=== PATIENT | female | born 1960 | race Caucasian/White ===

== ENCOUNTER 2017-09-07 11:32 | Inpatient (IN) | payer BC ==
[~2017-09-07] VITALS: Ht 160 cm; Wt 75.9 kg
[~2017-09-07 11:32] MED LIST: CARV3.1240 PO; CLOP75TA41 PO; DIAZ5TAB3 PO; ISOS30TA4 PO; LORA-654 PO; LOSA25TA9 PO; TRAZ50TA2 PO
[2017-09-07] MEDS ORDERED: SODIUM CHLORIDE 0.9% 1,000 ML IV SCH (16:37)
[2017-09-07] MEDS ORDERED: ACETAMINOPHEN 500 MG TAB PO PRN (16:45)
[2017-09-07] MEDS ORDERED: LORazepam 0.5 MG TAB PO PRN (16:45)
[2017-09-07] MEDS ORDERED: NITROGLYCERIN 0.4 MG SL TAB SL PRN (16:45)
[2017-09-07] MEDS ORDERED: TEMAZEPAM 15 MG CAP PO PRN (16:45)
[2017-09-07] MEDS ORDERED: MORPHINE SULF INJ 2 MG/ML SYRINGE 1ML IV PRN ×2 (16:45)
[2017-09-07] MEDS ORDERED: PROMETHAZINE HCL 25 MG/ML 1ML IV PRN (16:45)
[2017-09-07] MEDS ORDERED: LACTULOSE 20Gm/30ML SOLN PO PRN (16:45)
[2017-09-07] MEDS ORDERED: ENOXAPARIN SOD 40 MG/0.4 ML SYRINGE SC SCH (16:51)
[2017-09-07] MEDS ORDERED: PANTOPRAZOLE 40 MG/10 ML VIAL IV ONE (17:00)
[2017-09-07 17:01] LABS: Basophils # (auto) 0 uL; Basophils % (auto) 0.5 % (0.0-2.0); Eosinophils # (auto) 0.2 uL; Eosinophils % (auto) 1.6 % (0.0-7.0); Hematocrit 36.2 % (36.0-46.0); Hemoglobin 12.1 g/dL (12.2-16.2); Lymphocytes # (auto) 2.9 uL; Lymphocytes % (auto) 31.7 % (10.0-50.0); Mean Corpuscular Hgb Conc. 33.4 g/dL (32.0-36.0); Mean Corpuscular Volume 89.6 fL (80.0-100.0); Monocytes # (auto) 0.5 uL; Monocytes % (auto) 5.8 % (0.0-12.0); Neutrophils # (auto) 5.6 uL; Neutrophils % (auto) 60.4 % (37.0-80.0); Nucleated Red Blood Cells % 0.1 %; Platelet Count (auto) 201 10^3/uL (140-450); Red Blood Cells 4.04 10^6/uL (4.0-5.20); Red Cell Distribution Width 14.1 % (11.8-14.3); White Blood Cell 9.2 10^3/uL (4.4-10.8)
[2017-09-07 17:07] LABS: BUN/Creatinine Ratio 12.9; Calcium 7.9 mg/dL (8.5-10.1); Potassium 3.9 mmol/L (3.5-5.1)
[2017-09-07 17:14] LABS: Amylase 35 U/L (25-115); Lipase 96 U/L (73-393)
[2017-09-07] MEDS: SODIUM CHLORIDE 0.9% 1,000 ML IV SCH (18:30)
[2017-09-07 19:51] LABS: Hemoglobin 11.9 g/dL (12.2-16.2)
[2017-09-07 20:14] LABS: Alcohol, Urine < 3.0 mg/dL (0-5); Amphetamine Screen, Urine NEGATIVE (NEGATIVE); Barbiturate Scree,Urine NEGATIVE (NEGATIVE); Benzodiazephine Screen, Urine POSITIVE (NEGATIVE); Cannabinoid Screen, Urine NEGATIVE (NEGATIVE); Cocaine Screen, Urine NEGATIVE (NEGATIVE); Opiate Scree,Urine NEGATIVE (NEGATIVE); Phencyclidine Screen, Urine NEGATIVE (NEGATIVE)
[2017-09-07 22:00] VITALS: BP 130/74
[2017-09-08] VITALS (7 sets, daily range): BP systolic 112–163; BP diastolic 66–99
[2017-09-08] MEDS: SODIUM CHLORIDE 0.9% 1,000 ML IV SCH ×3 (01:00→14:24)
[2017-09-08 02:20] LABS: Hematocrit 34.9 % (36.0-46.0); Hemoglobin 11.5 g/dL (12.2-16.2)
[2017-09-08 06:24] LABS: Hemoglobin 11.9 g/dL (12.2-16.2)
[2017-09-08 06:39] LABS: Cholesterol 125 mg/dL (< 200); HDL Cholesterol 42 mg/dL (40-59); LDL Cholesterol 73 mg/dL (< 100); Triglycerides 96 mg/dL (< 150)
[2017-09-08] MEDS: PANTOPRAZOLE 40 MG TAB PO SCH ×2 (09:36→21:34)
[2017-09-08] MEDS ORDERED: PANTOPRAZOLE 40 MG TAB PO SCH (10:00)
[2017-09-08] MEDS ORDERED: ASPirin 81 mg TAB PO SCH (10:00)
[2017-09-08 18:16] LABS: Prothrombin Time 10.7 sec (9.27-12.13)
[2017-09-08] MEDS: LOSARTAN POTASSIUM 25 MG TAB PO SCH (21:33)
[2017-09-08] MEDS ORDERED: ISOSORBIDE MONONITRATE 60 MG TAB PO SCH (22:00)
[2017-09-08] MEDS ORDERED: LORazepam 0.5 MG TAB PO ONE (22:00)
[2017-09-08] MEDS ORDERED: LORazepam 0.5 MG TAB PO SCH (22:00)
[2017-09-09] MEDS: SODIUM CHLORIDE 0.9% 1,000 ML IV SCH ×2 (01:09→06:07)
[2017-09-09] MEDS: HYDROcodone-ACET 5/325MG TAB PO PRN ×2 (03:38→13:28)
[2017-09-09 05:00] VITALS: BP 127/67
[2017-09-09 08:00] VITALS: BP 112/70
[2017-09-09] MEDS ORDERED: LIDOCAINE 2%HCL (LOCAL ANESTH.) INJ 10ml MDV ONE (08:17)
[2017-09-09] MEDS ORDERED: IODIXANOL 320MG/ML 100ML BTL IV ONE (08:17)
[2017-09-09] MEDS ORDERED: ANGIOMAX 250 MG VIAL IV ONE (08:53)
[2017-09-09] MEDS ORDERED: fentaNYL CITRATE 100 MCG/2 ML VL ONE (08:53)
[2017-09-09] MEDS ORDERED: MIDAZOLAM HCL 1MG/1ML-2 ML VIAL ONE (08:54)
[2017-09-09] MEDS ORDERED: SODIUM CHL 0.9% 50 ML ONE ×2 (08:54→09:23)
[2017-09-09 09:00] VITALS: BP 146/86
[2017-09-09] MEDS ORDERED: EPTIFIBATIDE INJ (2MG/ML) 10ML VIAL IV ONE (09:04)
[2017-09-09] MEDS ORDERED: VERAPAMIL 2.5MG/ML INJ 2ML VIAL IV ONE (09:04)
[2017-09-09] MEDS ORDERED: ADENOSINE 90 MG/30 ML INJ IV ONE (09:22)
[2017-09-09] MEDS ORDERED: CLOPIDOGREL BISULFATE 75 MG TAB PO SCH (10:00)
[2017-09-09 13:00] VITALS: BP 125/63
[2017-09-09] MEDS: LOSARTAN POTASSIUM 25 MG TAB PO SCH (13:27)
[2017-09-09] MEDS: PANTOPRAZOLE 40 MG TAB PO SCH (13:30)
[2017-09-09] MEDS ORDERED: ESCI10TA PO (15:14)
[2017-09-09] MEDS ORDERED: LORazepam 0.5 MG TAB PO ONE (16:15)
[2017-09-09 16:39] VITALS: BP 130/78
[2017-09-09 17:04] VITALS: BP 125/63
== END 2017-09-09 18:15 | disposition home or self-care (01) | DRG 287 ==
LOC: ER 11:32 → TELE 11:33 → TELE-WESTW 21:00
PROVIDERS: ADMIT Internal Medicine; ATTEND Hospitalist
PROC: 4A023N7 Measurement of Cardiac Sampling and Pressure, Left Heart, Percutaneous Approach (ICD-10-PCS; principal; 2017-09-09)
PROC: B2111ZZ Fluoroscopy of Multiple Coronary Arteries using Low Osmolar Contrast (ICD-10-PCS; 2017-09-09)
PROC: 4A033BC Measurement of Arterial Pressure, Coronary, Percutaneous Approach (ICD-10-PCS; 2017-09-09)
DX: I25.110 Atherosclerotic heart disease of native coronary artery with unstable angina pectoris (principal); K92.0 Hematemesis; I49.5 Sick sinus syndrome; F17.210 Nicotine dependence, cigarettes, uncomplicated; F32.9 Major depressive disorder, single episode, unspecified; I08.0 Rheumatic disorders of both mitral and aortic valves; K29.70 Gastritis, unspecified, without bleeding; E66.3 Overweight; I10 Essential (primary) hypertension; K57.90 Diverticulosis of intestine, part unspecified, without perforation or abscess without bleeding; F41.9 Anxiety disorder, unspecified; I73.9 Peripheral vascular disease, unspecified; I25.2 Old myocardial infarction; Z79.02 Long term (current) use of antithrombotics/antiplatelets; Z79.899 Other long term (current) drug therapy; Z80.0 Family history of malignant neoplasm of digestive organs; Z80.41 Family history of malignant neoplasm of ovary; Z82.49 Family history of ischemic heart disease and other diseases of the circulatory system; Z95.5 Presence of coronary angioplasty implant and graft; Z83.3 Family history of diabetes mellitus; Z88.0 Allergy status to penicillin; Z68.29 Body mass index [BMI] 29.0-29.9, adult
CPT/HCPCS: 36415; 70450; 80048; 80061; 80307; 82150; 82550; 82962; 83690; 84443; 84484; 85014; 85018; 85025; 85045; 85379; 85610; 85652; 85730; 86141; 86850; 86900; 86901; 87081; 93005; 93306; 93458; 93571; 96361; 96374; 99152; A6257; C9113; J0153; J2001; J2250; Q9967

== ENCOUNTER 2018-12-13 10:55 | Emergency (ER) | payer BC ==
[~2018-12-13] VITALS: Ht 160 cm; Wt 67.1 kg
[~2018-12-13 10:55] MED LIST changes: -DIAZ5TAB3 PO; +ESCI10TA PO; -ISOS30TA4 PO; -LORA-654 PO; +LORA0.5T12 PO; +LOSA25TA38 PO; -LOSA25TA9 PO; -TRAZ50TA2 PO
[2018-12-13 11:30] VITALS: BP 121/80
[2018-12-13] MEDS ORDERED: cefTRIAXone SOD 1,000 MG VL IM ONE (12:15)
[2018-12-13] MEDS ORDERED: LIDOCAINE 1% HCL (LOCAL ANESTH.) INJ 20ML MDV ONE (12:21)
[2018-12-13] MEDS ORDERED: LIDOCAINE 1% HCL (LOCAL ANESTH.) INJ 20ML MDV IJ ONE (12:30)
== END 2018-12-13 12:53 | disposition home or self-care (01) ==
LOC: ER 10:55
DX: B37.2 Candidiasis of skin and nail (principal); I25.10 Atherosclerotic heart disease of native coronary artery without angina pectoris; I10 Essential (primary) hypertension; Z88.0 Allergy status to penicillin
CPT/HCPCS: 96372; 99283; J0696; J2001